=== PATIENT | female | born 2000 | race Two or more races ===

== ENCOUNTER 2020-03-05 18:48 | Emergency (ER) | payer OTHER ==
[~2020-03-05] VITALS: Ht 165.1 cm; Wt 45.4 kg
[2020-03-05] MEDS ORDERED: CLARITIN10 M1 PO (19:35)
== END 2020-03-05 19:37 | disposition home or self-care (01) ==
LOC: ER 18:48
DX: S60.471A Other superficial bite of left index finger, initial encounter (principal); L08.9 Local infection of the skin and subcutaneous tissue, unspecified; T63.441A Toxic effect of venom of bees, accidental (unintentional), initial encounter; Y92.89 Other specified places as the place of occurrence of the external cause

== ENCOUNTER 2020-04-18 14:55 | Emergency (ER) | payer OTHER ==
[~2020-04-18] VITALS: Ht 165.1 cm; Wt 45.8 kg
[~2020-04-18 14:55] MED LIST: CLARITIN10 M1 PO
[2020-04-18] MEDS ORDERED: LANOXIN125 MCG PO (15:12)
== END 2020-04-18 16:50 | disposition home or self-care (01) ==
LOC: ER 14:55
DX: F06.4 Anxiety disorder due to known physiological condition (principal)

== ENCOUNTER → 2020-11-05 | Emergency (ER) | payer OTHER ==
[~2020-11-05] VITALS: Ht 165.1 cm; Wt 45.4 kg
[~2020-11-05] MED LIST changes: +LANOXIN125 MCG PO
== END | disposition home or self-care (01) ==
LOC: ER 13:15
DX: M79.622 Pain in left upper arm (principal)